=== PATIENT | female | born 1980 | race Caucasian/White ===

== ENCOUNTER → 2017-03-16 | Outpatient (CLI) | payer BC, OTHER ==
[~2017-03-16] MED LIST: ALBUTEROL; DOCU100T7; NITR-65 PO; ONDN4T; PREN1TAB39
--- NOTE | 2017-03-16 14:02 | Diagnostic Imaging Report ---
EXAMINATION: Transabdominal and transvaginal pelvic ultrasound. INDICATION: Abnormal uterine bleeding. FINDINGS: The uterus is 10.4 x 7 x 6.3 cm. The endometrial stripe is 1.6 cm in thickness. The myometrium demonstrates heterogenicity with multiple hyperechoic foci and prominent vascularity with color Doppler seen. Consider possibility of adenomyosis. In the posterior aspect of the fundus, there is a hypoechoic area measuring 2.8 x 1.9 x 3 cm which might represent a myometrial fibroid. The right ovary is 3.8 x 4.1 x 1.5 cm, and the left ovary is 2.7 x 2.2 x 3.2 cm. There are arterial and venous waveforms demonstrated. Bilateral follicles are also seen. Small amount of free fluid in the pelvis is noted. IMPRESSION: 1. Enlarged heterogeneous uterus may relate to adenomyosis. There is also suggestion of a myometrial fibroid in the posterior fundus. 2. The endometrial thickness is at the upper limits of normal with no definitive focal lesion seen. Dictated by: Dictated on workstation # [id number]
== END ==
LOC: RAD 10:34
PROVIDERS: ATTEND Nurse Practitioner Family
DX: N85.2 Hypertrophy of uterus (principal); N93.9 Abnormal uterine and vaginal bleeding, unspecified
CPT/HCPCS: 76830; 76856

== ENCOUNTER 2017-05-02 08:53 | Outpatient (CLI) | payer OTHER ==
[~2017-05-02] VITALS: Ht 182.9 cm; Wt 83.9 kg
[2017-05-02] MEDS ORDERED: LORA10TA76 PO (09:05)
[2017-05-02] MEDS ORDERED: RT-ALBUINH IH (09:05)
[2017-05-02] MEDS ORDERED: ALPR1TAB2 PO (09:05)
[2017-05-02 09:20] VITALS: BP 116/79
[2017-05-02 09:24] LABS: BASOPHILS # (AUTO) 0.1 10^3/uL (0.0-0.1); BASOPHILS % (AUTO) 1 % (0-10); EOSINOPHILS # (AUTO) 0.3 10^3/uL (0.0-0.3); EOSINOPHILS % (AUTO) 3 % (0-10); LYMPHOCYTES # (AUTO) 3.4 X 10^3 (1.0-4.0); LYMPHOCYTES % (AUTO) 33 % (12-44); MEAN CORPUSCULAR HEMOGLOBIN 31 PG (25-34); MEAN CORPUSCULAR HGB CONC 34 G/DL (32-36); MEAN CORPUSCULAR VOLUME 92 FL (80-99); MEAN PLATELET VOLUME 9.2 FL (7.4-10.4); MONOCYTES # (AUTO) 0.6 X 10^3 (0.0-1.0); MONOCYTES % (AUTO) 6 % (0-12); NEUTROPHILS % (AUTO) 58 % (42-75); PLATELET COUNT 575 10^3/uL (130-400); RED BLOOD COUNT 4.66 10^6/uL (4.35-5.85); RED CELL DISTRIBUTION WIDTH 14.4 % (10.0-14.5); WHITE BLOOD COUNT 10.4 10^3/uL (4.3-11.0)
== END 2017-05-02 09:25 | disposition home or self-care (01) ==
LOC: PREOP 08:53
PROVIDERS: ATTEND Obstetrics & Gynecology
DX: Z01.812 Encounter for preprocedural laboratory examination (principal); D25.9 Leiomyoma of uterus, unspecified; N94.6 Dysmenorrhea, unspecified; N93.9 Abnormal uterine and vaginal bleeding, unspecified
CPT/HCPCS: 36415; 85025; 86850; 86900; 86901; 87081

== ENCOUNTER 2017-05-05 07:16 | Day surgery (SDC) | payer OTHER ==
[~2017-05-05] VITALS: Ht 182.9 cm; Wt 83.9 kg
[~2017-05-05 07:16] MED LIST changes: +ALPR1TAB2 PO; +LORA10TA76 PO; +RT-ALBUINH IH
--- OUTSIDE RECORDS SUMMARY | 2017-05-05 07:19 | XMS REPORT ---
Author Author KING ANUGIANO [facility] eClinicalWorks Address Unknown Phone Unavailable Care Team Providers Care Delivery And Mail Sorter Name Role Phone KING ANGUIANO Unavailable Allergies No Known Allergies Problems Problem Type Condition Code Onset Dates Condition Status Problem Attention deficit disorder of childhood with hyperactivity 314.01 Active Problem Other general counseling and advice for contraceptive management V25.09 Active Problem Excessive or frequent menstruation 626.2 Active Problem Anxiety state, unspecified 300.00 Active Problem Other disorder of menstruation and other abnormal bleeding from female genital tract 626.8 Active Problem Major depressive disorder, recurrent episode, moderate 296.32 Active Problem Lumbago 724.2 Active Problem Screening examination for venereal disease V74.5 Active Problem Surveillance of previously prescribed intrauterine contraceptive device V25.42 Active Problem Unspecified breast screening V76.10 Active Problem Screening for malignant neoplasm of the cervix V76.2 Active Problem Other screening breast examination V76.19 Active Problem Encounter for removal of intrauterine contraceptive device V25.12 Active Problem Acute tonsillitis 463 Active Problem Encounter for insertion of intrauterine contraceptive device V25.11 Active Medications Medication Code System Code Instructions Start Date End Date Status Dosage Adderall [facility] [address]-87 5 MG Orally Once a day [id number] Aug 05, 2015 1 tab at 1600 Adderall XR [facility] [address]-17 20 MG Orally Once a day in the morning March 04, 2015 1 capsule Xanax [facility] [address]-03 1 MG Orally 4 times a day 1 tablet Ambien [facility] [address]-69 5 MG Orally Once a day at bedtime May 06, 2015 1 tablet Results No Known Results Summary Purpose eClinicalWorks Submission
--- OUTSIDE RECORDS SUMMARY | 2017-05-05 07:19 | XMS REPORT ---
Author Author DAPHNE EMERSON [facility] eClinicalWorks Address Unknown Phone Unavailable Care Team Providers Care Television Engineering Teacher Name Role Phone DAPHNE EMERSON CP Unavailable Allergies, Adverse Reactions, Alerts Substance Reaction Event Type Demerol rash Drug Allergy Problems Problem Type Condition Code Onset Dates [...] Active Problem Unspecified breast screening V76.10 Active Assessment alf use of drug Z79.899 Active Assessment Generalized anxiety disorder F41.1 Active Problem Screening for malignant neoplasm of the cervix V76.2 Active Problem Other screening breast examination V76.19 Active Assessment Attention-deficit hyperactivity disorder, unspecified type F90.9 Active Problem Encounter for removal of intrauterine contraceptive device V25.12 Active Problem Acute tonsillitis 463 Active Problem Encounter for insertion of intrauterine contraceptive device V25.11 Active Medications Medication Code System Code Instructions Start Date End Date Status Dosage Albuterol NDC 0 90 mcg/actuation January 11, 2013 2 puffs by Inhalation route 4 times per day PRN Loratadine [facility] [address]-31 10 mg Jul 23, 2014 1 Tablet by Oral route 1 time per day OTC for allergies Adderall XR [facility] [address]-18 20 mg Orally Once a day in the morning March 04, 2015 1 capsule Adderall [facility] [address]-93 5 MG Orally Once a day [id number] Aug 05, 2015 1 tab at 1600 Ambien [facility] [address]-69 5 MG Orally Once a day at bedtime May 06, 2015 1 tablet Alprazolam [facility] [address]-47 1 MG Orally 4 times a day 1 tablet Procedures Procedure Coding System Code Date Office Visit, Est Pt., Level 4 CPT-4 82951 December 30, 2015 Vital Signs Date/Time: December 30, 2015 Temperature 98.3 F Weight 150.5 lbs Height 71.75 in BMI 20.55 Index Blood Pressure Diastolic 80 mmHg Blood Pressure Systolic 130 mmHg Cardiac Monitoring Heart Rate 78 bpm Results Name Result Date Reference Range Unit Abnormality Flag URINE DRUG SCREEN (IN HOUSE) ----MDMA neg 20151230 ----TCA neg 20151230 ----BENZO positive 20151230 ----OPIATE neg 20151230 ----THC neg 20151230 ----MTD neg 20151230 ----AMPH positive 20151230 ----BAR neg 20151230 ----PCP neg 20151230 ----MAMP neg 20151230 ----OXY neg 20151230 ----Lot # [id number] ----Exp date 20151230 ----Control + 20151230 ----COCAINE neg 20151230 Summary Purpose eClinicalWorks Submission
--- OUTSIDE RECORDS SUMMARY | 2017-05-05 07:20 | XMS REPORT ---
Author Author GROVER COX Organization eClinicalWorks Address Unknown Phone Unavailable Care Team Providers Care Astro Technician Name Role Phone GROVER COX CP Unavailable Allergies, Adverse Reactions, Alerts Substance [...] Problem Unspecified breast screening V76.10 Active Assessment Attention-deficit hyperactivity disorder, unspecified type F90.9 Active Problem Screening for malignant neoplasm of the cervix V76.2 Active Problem Other screening breast examination V76.19 Active Assessment Generalized anxiety disorder F41.1 Active Problem Encounter for removal of intrauterine contraceptive device V25.12 Active Problem Acute tonsillitis 463 Active Problem Encounter for insertion of intrauterine contraceptive device V25.11 Active Medications Medication Code System Code Instructions Start Date End Date Status Dosage Adderall XR [facility] [address]-08 20 mg Orally Once a day in the morning March 04, 2015 1 capsule Ambien [facility] [address]-34 5 mg Orally Once a day at bedtime May 06, 2015 1 tablet Alprazolam [facility] [address]-13 1 MG Orally 4 times a day 1 tablet Loratadine [facility] [address]-03 10 mg Jul 23, 2014 1 Tablet by Oral route 1 time per day OTC for allergies Adderall [facility] [address]-75 5 mg Orally Once a day [id number] Aug 05, 2015 1 tab at 1600 Albuterol [facility] 0 90 mcg/actuation January 11, 2013 2 puffs by Inhalation route 4 times per day PRN Procedures Procedure Coding System Code Date Office Visit, Est Pt., Level 3 CPT-4 15002 Apr 06, 2016 Vital Signs Date/Time: Apr 06, 2016 Cardiac Monitoring Heart Rate 100 bpm Weight 152.0 lbs Height 71.75 in BMI 20.76 Index Blood Pressure Diastolic 80 mmHg Blood Pressure Systolic 96 mmHg Results No Known Results Summary Purpose eClinicalWorks Submission
--- OUTSIDE RECORDS SUMMARY | 2017-05-05 07:20 | XMS REPORT ---
Author Author Phuong GROVER Organization [facility] Address [address] [place] [address] Care Team Providers Care Player Services Representative Name Role Phone rileyDallasSOPHIARAMANY Unavailable PROBLEMS Type Condition ICD9-CM Code [id number] Code Onset Dates Condition Status SNOMED Code Problem Generalized anxiety disorder F41.1 Active 35259541 Problem Recurrent major depressive disorder, in partial remission F33.41 Active 70377448 Problem Mild intermittent asthma without complication J45.20 Active 553182497 Problem Abnormal uterine bleeding N93.9 Active 00408579121217 Problem Menorrhagia with irregular cycle N92.1 Active 688284815 Problem Panic disorder F41.0 Active 857576676 Problem Encounter for well woman exam Z01.419 Active 195323484 Problem Dysmenorrhea N94.6 Active 803599304 ALLERGIES Substance Reaction Event Type Date Status Demerol rash Drug Allergy Aug, Active SOCIAL HISTORY No smoking Hx information available PLAN OF CARE Activity Details Follow Up 3 Months Reason: VITAL SIGNS Height 71.75 in 2016-08-19 Weight 170.7 lbs 2016-08-19 Heart Rate 120 bpm 2016-08-19 Respiratory Rate 20 2016-08-19 BMI 23.31 kg/m2 2016-08-19 Blood pressure systolic 120 mmHg 2016-08-19 Blood pressure diastolic 83 mmHg 2016-08-19 MEDICATIONS Medication Instructions Dosage Frequency Start Date End Date Duration Status Alprazolam 1 MG Orally 4 times a day 1 tablet 6h Active RESULTS No Results PROCEDURES Procedure Date Ordered Related Diagnosis Body Site MH Office Visit, Est Pt., Level 3 Aug 19, 2016 IMMUNIZATIONS No Known Immunizations
--- OUTSIDE RECORDS SUMMARY | 2017-05-05 07:20 | XMS REPORT ---
Author Author GROVER COX [facility] Address [address] [place] [address] Care Team Providers Care Brick Off Bearer Name Role Phone GROVER COX Unavailable PROBLEMS Unknown Problems ALLERGIES Unknown Allergies SOCIAL HISTORY No smoking Hx information available PLAN OF CARE VITAL SIGNS MEDICATIONS Medication Instructions Dosage Frequency Start Date End Date Duration Status Adderall XR 20 mg Orally Once a day in the morning 1 capsule Feb, Active Adderall 5 mg Orally Once a day [id number] 1 tab at 1600 Aug, Active Alprazolam 1 MG Orally 4 times a day 1 tablet 6h Active RESULTS No Results PROCEDURES No Known procedures IMMUNIZATIONS No Known Immunizations
--- OUTSIDE RECORDS SUMMARY | 2017-05-05 07:20 | XMS REPORT ---
Author Author GROVER COX Organization eClinicalWorks Address Unknown Phone Unavailable Care Team Providers Care Milk Sampler Name Role Phone GROVER COX CP Unavailable Allergies No Known Allergies Problems Problem [...] Date End Date Status Dosage Adderall XR [facility] [address]-79 20 mg Orally Once a day in the morning March 04, 2015 1 capsule Adderall [facility] [address]-53 5 mg Orally Once a day [id number] Aug 05, 2015 1 tab at 1600 Results No Known Results Summary Purpose eClinicalWorks Submission
--- OUTSIDE RECORDS SUMMARY | 2017-05-05 07:20 | XMS REPORT ---
Author Author KING ANGUIANO [facility] eClinicalWorks Address Unknown Phone Unavailable Care Team Providers Care Oracle Fusion Middleware Developer Name Role Phone KING ANGUIANO Unavailable Allergies [...] Problem Unspecified breast screening V76.10 Active Assessment Anxiety disorder, unspecified F41.9 Active Problem Screening for malignant neoplasm of the cervix V76.2 Active Problem Other screening breast examination V76.19 Active Assessment Attention-deficit hyperactivity disorder, predominantly hyperactive type F90.1 Active Problem Encounter for removal of intrauterine contraceptive device V25.12 Active Problem Acute tonsillitis 463 Active Problem Encounter for insertion of intrauterine contraceptive device V25.11 Active Medications Medication Code System Code Instructions Start Date End Date Status Dosage Adderall [facility] [address]-05 5 MG Orally Once a day [id number] Aug 05, 2015 1 tab at 1600 Ambien [facility] [address]-84 5 MG Orally Once a day at bedtime May 06, 2015 1 tablet Xanax [facility] [address]-00 1 MG Orally 4 times a day 1 tablet Adderall XR [facility] [address]-40 20 MG Orally Once a day in the morning Dr. Good to sign for Giuliana March 04, 2015 1 capsule Loratadine [facility] [address]-45 10 mg Jul 23, 2014 1 Tablet by Oral route 1 time per day OTC for allergies Albuterol [facility] 0 90 mcg/actuation January 11, 2013 2 puffs by Inhalation route 4 times per day PRN Procedures Procedure Coding System Code Date Office Visit, Est Pt., Level 4 CPT-4 09630 Aug 05, 2015 Vital Signs Date/Time: Aug 05, 2015 Cardiac Monitoring Heart Rate 80 bpm Weight 150 lbs Height 71.75 in BMI 20.48 Index Blood Pressure Diastolic 74 mmHg Blood Pressure Systolic 122 mmHg Results No Known Results Summary Purpose eClinicalWorks Submission
--- OUTSIDE RECORDS SUMMARY | 2017-05-05 07:20 | XMS REPORT ---
Author Author MIC STEPHENS [facility] eClinicalWorks Address Unknown Phone Unavailable Care Team Providers Care Makeup Artist Name Role Phone MIC STEPHENS Unavailable Allergies No Known Allergies Problems Problem Type Condition ICD-9 Code Onset Dates Condition Status Problem Attention [...] Date End Date Status Dosage Adderall XR [facility] [address]-77 20 MG Orally Once a day in the morning March 04, 2015 1 capsule Results No Known Results Summary Purpose eClinicalWorks Submission
--- OUTSIDE RECORDS SUMMARY | 2017-05-05 07:20 | XMS REPORT ---
Author Author GROVER COX Organization eClinicalWorks Address Unknown Phone Unavailable Care Team Providers Care Field Services Director Name Role Phone GROVER COX CP Unavailable [...] Instructions Start Date End Date Status Dosage Alprazolam [facility] [address]-25 1 MG Orally 4 times a day 1 tablet Results No Known Results Summary Purpose eClinicalWorks Submission
--- OUTSIDE RECORDS SUMMARY | 2017-05-05 07:20 | XMS REPORT ---
Author Author GROVER COX Organization eClinicalWorks Address Unknown Phone Unavailable Care Team Providers Care Veterinary Inspector Name Role Phone GROVER COX CP Unavailable [...] Date End Date Status Dosage Adderall XR [facility] [address]-01 20 mg Orally Once a day in the morning March 04, 2015 1 capsule Adderall [facility] [address]-66 5 mg Orally Once a day [id number] Aug 05, 2015 1 tab at 1600 Alprazolam [facility] [address]-41 1 MG Orally 4 times a day 1 tablet Results No Known Results Summary Purpose eClinicalWorks Submission
--- OUTSIDE RECORDS SUMMARY | 2017-05-05 07:20 | XMS REPORT ---
Author Author ALEJANDRO CORLEY [facility] eClinicalWorks Address Unknown Phone Unavailable Care Team Providers Care Software Tester Name Role Phone ALEJANDRO CORLEY CP Unavailable Allergies No Known Allergies Problems [...] Date End Date Status Dosage Adderall XR [facility] [address]-22 20 MG Orally Once a day in the morning March 04, 2015 1 capsule Adderall [facility] [address]-28 5 MG Orally Once a day [id number] Aug 05, 2015 1 tab at 1600 Results No Known Results Summary Purpose eClinicalWorks Submission
--- OUTSIDE RECORDS SUMMARY | 2017-05-05 07:20 | XMS REPORT ---
Author Author KING ANGUIANO [facility] eClinicalWorks Address Unknown Phone Unavailable Care Team Providers Care Universal Grinder Operator Name Role Phone KING ANGUIANO Unavailable Allergies [...] Instructions Start Date End Date Status Dosage Ambien [facility] [address]-67 5 MG Orally Once a day at bedtime May 06, 2015 1 tablet Adderall XR [facility] [address]-86 20 MG Orally Once a day in the morning March 04, 2015 1 capsule Xanax [facility] [address]-15 1 MG Orally 4 times a day 1 tablet Adderall [facility] [address]-96 5 MG Orally Once a day [id number] Aug 05, 2015 1 tab at 1600 Results No Known Results Summary Purpose eClinicalWorks Submission
--- OUTSIDE RECORDS SUMMARY | 2017-05-05 07:20 | XMS REPORT ---
Author Author JEFFERSON PAUL Organization [facility] Address [address] [place] [address] Care Team Providers Care Button Clamper Name Role Phone PAUL JEFFERSON Unavailable PROBLEMS Type Condition ICD9-CM Code [id number] Code Onset Dates Condition Status SNOMED Code Assessment Neck muscle strain, initial encounter S16.1XXA Aug, Active 256106204 ALLERGIES Substance Reaction Event Type Date Status Demerol rash Drug Allergy Aug, Active SOCIAL HISTORY No smoking Hx information available PLAN OF CARE VITAL SIGNS Height 71.75 in 2016-08-07 Weight 175.6 lbs 2016-08-07 Heart Rate 96 bpm 2016-08-07 Respiratory Rate 20 2016-08-07 BMI 23.98 kg/m2 2016-08-07 Blood pressure systolic 116 mmHg 2016-08-07 Blood pressure diastolic 80 mmHg 2016-08-07 MEDICATIONS Medication Instructions Dosage Frequency Start Date End Date Duration Status Loratadine 10 mg 1 Tablet by Oral route 1 time per day OTC for allergies Jul, Active Ambien 5 mg Orally Once a day at bedtime 1 tablet May, Active Alprazolam 1 MG Orally 4 times a day 1 tablet 6h Active Adderall 5 mg Orally Once a day [id number] 1 tab at 1600 Aug, Active Adderall XR 20 mg Orally Once a day in the morning 1 capsule Feb, Active Cyclobenzaprine HCl 10 mg Orally Three times a day 1 tablet 8h Aug, Aug, 10 days Active Albuterol 90 mcg/actuation 2 puffs by Inhalation route 4 times per day PRN January, Active RESULTS No Results PROCEDURES Procedure Date Ordered Related Diagnosis Body Site Office Visit, Est Pt., Level 3 Aug 07, 2016 IMMUNIZATIONS No Known Immunizations
--- OUTSIDE RECORDS SUMMARY | 2017-05-05 07:20 | XMS REPORT ---
Author Author GROVER COX Organization eClinicalWorks Address Unknown Phone Unavailable Care Team Providers Care French Comber Name Role Phone GROVER COX CP Unavailable [...] Date End Date Status Dosage Adderall XR [facility] [address]-25 20 mg Orally Once a day in the morning March 04, 2015 1 capsule Adderall [facility] [address]-70 5 mg Orally Once a day [id number] Aug 05, 2015 1 tab at 1600 Results No Known Results Summary Purpose eClinicalWorks Submission
--- NOTE | 2017-05-05 07:21 | Progress Note-Pre Operative ---
Pre-Operative Progress Note H&P Reviewed The H&P was reviewed, patient examined and no changes noted. Date Seen by Provider: May 05, 2017 Time Seen by Provider: 08:00 Date H&P Reviewed: May 05, 2017 Time H&P Reviewed: 08:00 Pre-Operative Diagnosis: AUB, Enlarged uterus, Fibroid uterus, dysmenorrhea CHRIS RAIN DO May 05, 2017 7:21 am
--- OUTSIDE RECORDS SUMMARY | 2017-05-05 07:21 | XMS REPORT ---
Author Author MIC STEPHENS [facility] eClinicalWorks Address Unknown Phone Unavailable Care Team Providers Care Sharepoint Consultant Name Role Phone MIC STEPHENS Unavailable Allergies [...] Date End Date Status Dosage Adderall XR [facility] [address]-76 20 MG Orally Once a day in the morning Dr. Good to sign for Giuliana March 04, 2015 1 capsule Results No Known Results Summary Purpose eClinicalWorks Submission
--- OUTSIDE RECORDS SUMMARY | 2017-05-05 07:21 | XMS REPORT ---
Author Author MIC STEPHENS [facility] eClinicalWorks Address Unknown Phone Unavailable Care Team Providers Care Virology Teacher Name Role Phone MIC STEPHENS CP Unavailable Allergies, Adverse Reactions, Alerts Substance Reaction Event Type Demerol rash Drug Allergy Problems Problem Type Condition ICD-9 Code Onset [...] Unspecified breast screening V76.10 Active Assessment Anxiety state, unspecified 300.00 Active Problem Screening for malignant neoplasm of the cervix V76.2 Active Problem Other screening breast examination V76.19 Active Assessment Attention deficit disorder of childhood with hyperactivity 314.01 Active Problem Encounter for removal of intrauterine contraceptive device V25.12 Active Problem Acute tonsillitis 463 Active Problem Encounter for insertion of intrauterine contraceptive device V25.11 Active Medications Medication Code System Code Instructions Start Date End Date Status Dosage Adderall XR [facility] [address]-62 20 MG Orally Once a day in the morning March 04, 2015 1 capsule Albuterol [facility] 0 90 mcg/actuation January 11, 2013 2 puffs by Inhalation route 4 times per day PRN Ambien [facility] [address]-13 5 MG Orally Once a day at bedtime May 06, 2015 1 tablet Loratadine [facility] [address]-71 10 mg Jul 23, 2014 1 Tablet by Oral route 1 time per day OTC for allergies Xanax [facility] [address]-42 1 MG Orally 4 times a day 1 tablet Procedures Procedure Coding System Code Date Office Visit, Est Pt., Level 3 CPT-4 91089 May 06, 2015 Vital Signs Date/Time: May 06, 2015 Cardiac Monitoring Heart Rate 84 bpm Weight 146.8 lbs Height 71.75 in BMI 20.05 Index Blood Pressure Diastolic 60 mmHg Blood Pressure Systolic 98 mmHg Results No Known Results Summary Purpose eClinicalWorks Submission
--- OUTSIDE RECORDS SUMMARY | 2017-05-05 07:21 | XMS REPORT ---
Author Author MIC STEPHENS [facility] eClinicalWorks Address Unknown Phone Unavailable Care Team Providers Care Regional Climate Change Analyst Name Role Phone MIC STEPHENS Unavailable Allergies [...] Date End Date Status Dosage Adderall XR [facility] [address]-16 20 MG Orally Once a day in the morning Dr. Good to sign for Giuliana March 04, 2015 1 capsule Results No Known Results Summary Purpose eClinicalWorks Submission
[2017-05-05] MEDS ORDERED: metroNIDAZOLE 500MG/100ML IVPB 100 ML ONE (07:24)
[2017-05-05] MEDS ORDERED: NS (IVPB) 50 ML ONE (07:24)
[2017-05-05] MEDS ORDERED: ceFAZolin 1,000 MG (ANCEF) VIAL ONE (07:24)
[2017-05-05 07:30] VITALS: BP 96/68
[2017-05-05] MEDS ORDERED: BUPIVACAINE 0.25% 30 ML (SENSORCAINE) VIAL ONE (07:37)
[2017-05-05] MEDS ORDERED: metroNIDAZOLE 500 MG/100 ML IVPB (PRE-MIX) IV ONE (07:45)
[2017-05-05] MEDS ORDERED: ceFAZolin 1 GM/NS 50 ML IVPB IV ONE ×2 (07:45)
[2017-05-05] MEDS ORDERED: CATHETER FLUSH 10 ML SYR IV PRN (07:45)
[2017-05-05] MEDS: LACTATED RINGERS 1,000 ML IV PRN ×2 (08:00→09:40)
[2017-05-05] MEDS ORDERED: MIDAZOLAM 2 MG/2 ML (VERSED) VIAL ONE (08:57)
[2017-05-05] MEDS ORDERED: proPOfol 200 MG/20 ML (DIPRIVAN) VIAL IV ONE (08:57)
[2017-05-05] MEDS ORDERED: fentaNYL INJECTION 250 MCG/5 ML AMP ONE (08:57)
[2017-05-05] MEDS ORDERED: ROCURONIUM 50 MG/5 ML (ZEMURON) VIAL IV ONE (08:57)
[2017-05-05] MEDS ORDERED: CHLORASEPTIC LOZENGE MM PRN (09:15)
[2017-05-05] MEDS ORDERED: SIMETHICONE 80 MG (MYLICON) CHEW PO PRN (09:15)
[2017-05-05] MEDS ORDERED: DOCUSATE SODIUM 100 MG (COLACE) CAP PO PRN (09:15)
[2017-05-05] MEDS ORDERED: ZOLPIDEM 5 MG (AMBIEN) TAB PO PRN (09:15)
[2017-05-05] MEDS ORDERED: ONDANSETRON 4 MG/2 ML (SDV) Z0FRAN IV PRN (09:15)
[2017-05-05] MEDS ORDERED: ANTACID SUSP 30 ML UDC (MYLANTA) PO PRN (09:15)
[2017-05-05] MEDS ORDERED: DEXAMETHASONE 10 MG/ML (DECADRON) 1 ML VIAL ONE (10:23)
[2017-05-05] MEDS ORDERED: NEOSTIGMINE (BLOXIVERZ ) 1 MG/1ML 10 ML VIAL ONE (10:23)
[2017-05-05] MEDS ORDERED: SEVOFLURANE (ULTANE) 15 ML INHAL SOLN ONE (10:23)
[2017-05-05] MEDS ORDERED: GLYCOPYRROLATE 0.2 MG/ML (ROBINUL) 2 ML VIAL ONE (10:23)
[2017-05-05] MEDS ORDERED: morphine INJ 10 MG/ML 1ML (SYR OR VIAL) ONE (10:38)
[2017-05-05] MEDS ORDERED: fentaNYL INJECTION 100 MCG/2 ML AMP ONE (10:38)
[2017-05-05] MEDS: fentaNYL INJECTION 100 MCG/2 ML AMP IVP PRN ×2 (10:45→10:53)
[2017-05-05] MEDS: morphine INJ 10 MG/ML 1ML (SYR OR VIAL) IVP PRN ×2 (10:49→11:01)
[2017-05-05] MEDS ORDERED: HYDROmorphone (DILAUDID) 2 MG/ML VIAL IVP PRN (11:00)
[2017-05-05] MEDS ORDERED: KETOROLAC 30 MG/ML VIAL IVP ONE (11:00)
[2017-05-05] MEDS ORDERED: ONDANSETRON 4 MG/2 ML (SDV) Z0FRAN IVP PRN (11:00)
--- NOTE | 2017-05-05 11:01 | Discharge Inst-Women's Service ---
Discharge Inst-Women's Serv Depart Medication/Instructions New, Converted or Re-Newed RX: RX on Chart Consults/Follow Up Additional Follow Up: Yes Orders/Referrals Dr. Rain in 7-10 days and in 8 weeks Activity Activity: Activity as Tolerated Driving Instructions: No Driving for 1 Week NO SMOKING: NO SMOKING Nothing Inside Vagina: No Douching, No [place], No Tampons Diet Discharge Diet: No Restrictions Symptoms to Report to : Bleeding Excessive, Pain Increased, Fever Over 101 Degrees F, Vaginal Bleeding Increase, Questions/Concerns For Any Problems or Questions: Contact Your Physician Skin/Wound Care Infection Signs and Symptoms: Increased Redness, Foul Odor of Wound, Increased Drainage, Skin Itchy or Has a Rash, Increased Swelling, Temperature Above 101 F Operative Area Clean and Dry: Keep Incision Clean/Dry Stitches/Lizzy/Dermabond: Dermabond, Care of Stitches Bathing Instructions: Shower (x 2 weeks) CHRIS RAIN DO May 05, 2017 11:01 am
[2017-05-05] MEDS ORDERED: HYDR-3816 PO (11:03)
[2017-05-05] MEDS ORDERED: IBUP-1773 PO (11:03)
[2017-05-05] MEDS ORDERED: DOCU100C37 PO (11:03)
[2017-05-05] MEDS ORDERED: SIME80TA16 PO (11:03)
--- NOTE | 2017-05-05 11:06 | Progress Note-Post Operative ---
Post-Operative Progess Note Surgeon (s)/Laborer/Key Man (s) Surgeon CHRIS RAIN DO Laborer/Key Man: Natasha France Pre-Operative Diagnosis AUB, Enlarged uterus, Fibroid uterus, dysmenorrhea Post-Operative Diagnosis same plus uterus > 250 gms Procedure & Operative Findings Date of Procedure 05/05/17 Procedure Performed/Findings RATLH with bilateral salpingectomy Anesthesia Type GETA Estimated Blood Loss Estimated blood loss (mL): min Specimens/Packing Specimens Removed uterus and tubes CHRIS RAIN DO May 05, 2017 11:06 am
[2017-05-05 12:00] VITALS: BP 96/72
[2017-05-05 13:00] VITALS: BP 98/64
--- NOTE | 2017-05-05 13:21 | OPERATIVE REPORT ---
DATE OF SERVICE: 05/05/2017 PREOPERATIVE DIAGNOSES: 1. A 36-year-old female with abnormal uterine bleeding. 2. Enlarged uterus. 3. Fibroid uterus. 4. Dysmenorrhea. POSTOPERATIVE DIAGNOSES: 1. A 36-year-old female with abnormal uterine bleeding. 2. Enlarged uterus. 3. Fibroid uterus. 4. Dysmenorrhea. 5. Uterus greater than 250 grams. PROCEDURES: Robotic assisted total laparoscopic hysterectomy and bilateral salpingectomy. SURGEON: CHRIS RAIN DO. [employer]ENT [employer]: ALEXI CARLTON ANESTHESIA: General endotracheal. ESTIMATED BLOOD LOSS: Minimal. URINE OUTPUT: 50 mL clear at the time of procedure. FLUID: 1300 mL lactated Ringer's solution. FINDINGS: Enlarged, bulky, hyperemic appearing uterus with grossly normal bilateral fallopian tubes and ovaries. Normal external female genitalia. Normal vaginal mucosa. INDICATIONS FOR PROCEDURE: This 36-year-old female was a consultation to me for ongoing issues with heavy vaginal bleeding. The patient works at a car [employer] and on several occasions has had bleeding to the extent where it has bypassed her tampons and pads and have actually spilled blood out into her pants and into the seats of vehicle she had been driving. She had been on multiple treatment options in the past, all of which have failed to regulate her. She also smokes and now contraindication due to her being greater than the age of 34 and smoking was found for trial of hormonal treatment of this. We also discussed endometrial ablation, however, I discussed the limited success rate of this based on the uterine size. We also discussed finally a more definitive option in the form of hysterectomy, risks of procedure discussed with the patient in detail including the risk of bleeding, infection, damage to any surrounding structures including but not limited the ureter, bowel, bladder, kidneys. After all of her questions were answered pertaining to risk of these injuries, reoperation from these injuries, risks of the procedure in detail, as well as postoperative and preoperative expectations, consent was obtained in the preoperative area and the patient was taken to the operating room. OPERATIVE REPORT IN DETAIL: Once in the operating room, general anesthesia was found to be excellent. She was placed in the dorsal lithotomy position, prepped and draped in normal sterile fashion. Wiseman catheter was placed using sterile technique. A weighted speculum was inserted in the patient's vaginal. A right angle retractor was used to visualize the cervix, it was grasped in the 12 o'clock position using a long Allis clamp. An 0 Vicryl suture was then placed in the anterior lip of the cervix and the clamp is then removed. I used the suture now as my retraction point and gently sounded the uterine cavity, it was found to be 9 cm. I then selected an 8 cm Sarah uterine manipulator tip and a 3.5 cm colpotomy ring and placed this within the endometrial cavity deploying the balloon and advancing the colpotomy ring around the vaginal fornix. Once this was in place, excellent uterine manipulation was noted on bimanual examination. I then removed all the instruments from the patient's vagina and turned my attention to the abdomen after change of gloves was performed. Infraumbilically I infiltrated this area using 0.25% Marcaine and made an 8 mm incision and directed Veress needle through this incision until intraperitoneal placement was confirmed using the saline drop test. I then proceeded with insufflation using CO2 gas and opening pressure of 3 mmHg is noted. I proceeded to a maximum pressure of 15 mmHg at which point I removed the Veress needle and introduced an 8 mm blunt da Glendy camera trocar. Once this was in place I placed the patient in deep Trendelenburg and I am able to visualize deep intraperitoneal anatomy. There is no evidence of damage upon my entry site. I then placed 2 lateral trocars, these were both 8 mm trocars. The skin was infiltrated with 0.25% Marcaine, 8 mm incisions are made and the trocars are advanced under direct visualization with the laparoscope. Once intraperitoneal placement is confirmed on bilateral side, I then bring in the da Glendy robot and dock in the appropriate fashion. I placed the da Glendy vessel sealer in the left hand and monopolar scissors in the right hand. I then take my place at the operative console of the da Glendy robot. I then performed the following dissections bilaterally: I grasped the uteroovarian ligament, bipolar cauterized this, and transected using vessel sealer. I then created a window in the mesosalpinx and took this laterally transecting the mesosalpinx from the fallopian tube and allowing it to be removed with the uterus. I do this using the vessel sealer and bipolar cauterizing and transecting as I go. I then grasp the round ligament, bipolar cauterize this, and transect it as well. I then am able to grab the entire broad ligament. I bipolar cauterized this and transected this down to the level of the lower uterine segment at which point I separate the anterior and posterior leaflets of the broad ligament. The anterior leaflet is taken around to the anterior vaginal fornix. The posterior leaflet is taken around to the posterior vaginal fornix. This allows me to isolate and skeletonize the uterine vessels bilaterally. Once they are skeletonized, I bipolar cauterized and transected them using the vessel sealer. I then performed a colpotomy using monopolar shear. I take this circumferentially around the colpotomy ring, amputating the cervix away from the vaginal fornix. The entire specimen, uterus, cervix, and bilateral fallopian tubes were then removed through the vagina. I then proceeded with closing the vaginal cuff using 2-0 Vicryl suture in a figure of eight fashion, colposuspending them to the uterosacral ligaments. The lateral vaginal apices are closed in this fashion. I then closed the remainder of the vaginal cuff using 2-0 V-Loc in a running stitch. There is no active bleeding from any of my dissection planes after this is completed. I then undocked the da Glendy robot and proceeded with the remainder of the case all laparoscopically after all robotic instruments and needles are removed. I then copiously irrigated the pelvis using normal saline. There is no active bleeding noted from any of my dissection planes. I then placed FloSeal hemostatic agent over all my planes of dissection and had the patient taken out of steep Trendelenburg. The lateral trocars are removed under direct visualization of the laparoscope. The infraumbilical trocar is then used to release all the insufflation and to introduce 10 mL of 0.25% Marcaine into the peritoneal cavity for postoperative pain management. Once this was done, I removed the infraumbilical trocar and then incision sites were then closed using 4-0 Monocryl in interrupted subcuticular stitches. Dermabond was applied to the incisions and bandage placed over these. Wiseman catheter was left in place. The patient tolerated the procedure well and was taken to the recovery area in stable condition. Lap and sponge counts were correct at the end of the procedure. Instrument count was correct as well. Two grams of Ancef, 500 mg of Flagyl were given preoperatively for infection prophylaxis. Job ID: [id number] DocumentID: [id number] Dictated Date: 05/05/2017 11:13:06 Maintenance Porter Date: 05/05/2017 13:21:15 Dictated By: DO JABARI JOSEPH
[2017-05-05 13:30] VITALS: BP 95/64
[2017-05-05] MEDS ORDERED: NS IV 500 ML 500 ML ONE (14:30)
[2017-05-05] MEDS ORDERED: NS IV 500 ML 500 ML IV SCH (14:45)
[2017-05-05] MEDS: LACTATED RINGERS 1,000 ML IV SCH (14:52)
[2017-05-05 15:00] VITALS: BP 106/67
[2017-05-05] MEDS: HYDROcodone/APAP 7.5 MG/325 MG (LORTAB, LORCET PLUS) TABLET PO PRN ×2 (15:02→16:58)
[2017-05-05] MEDS: KETOROLAC 30 MG/ML VIAL IV PRN ×2 (16:09→22:38)
[2017-05-05] MEDS ORDERED: PATIENT MAY USE OWN MEDS, ALL MC SCH (19:00)
[2017-05-05 20:00] VITALS: BP 97/62
[2017-05-05] MEDS: ALPRAZolam 1 MG (XANAX) TAB PO SCH (20:37)
[2017-05-06] VITALS: BP 100/62
[2017-05-06] MEDS: HYDROcodone/APAP 7.5 MG/325 MG (LORTAB, LORCET PLUS) TABLET PO PRN ×2 (00:07→06:02)
[2017-05-06] MEDS: LACTATED RINGERS 1,000 ML IV SCH ×2 (01:29→09:36)
[2017-05-06 04:00] VITALS: BP 101/65
[2017-05-06] MEDS: IBUPROFEN 600 MG (MOTRIN) TAB PO PRN ×2 (04:36→09:22)
[2017-05-06 08:00] VITALS: BP 102/66
[2017-05-06] MEDS: ALPRAZolam 1 MG (XANAX) TAB PO SCH (09:19)
[2017-05-06 10:15] VITALS: BP 102/66
== END 2017-05-06 10:15 | disposition home or self-care (01) ==
LOC: SDC 07:16 → WS 11:52 → SDC 05-06 10:15
PROVIDERS: ATTEND Obstetrics & Gynecology
DX: N94.6 Dysmenorrhea, unspecified (principal); D25.9 Leiomyoma of uterus, unspecified; N85.2 Hypertrophy of uterus; N72 Inflammatory disease of cervix uteri; N83.8 Other noninflammatory disorders of ovary, fallopian tube and broad ligament; F17.210 Nicotine dependence, cigarettes, uncomplicated; J45.909 Unspecified asthma, uncomplicated; K21.9 Gastro-esophageal reflux disease without esophagitis; Z79.899 Other long term (current) drug therapy
CPT/HCPCS: 84703

== ENCOUNTER 2020-11-03 08:21 | Outpatient (RCR) | payer BC, OTHER ==
[~2020-11-03 08:21] MED LIST changes: +DOCU100C37 PO; +HYDR-34 PO; +IBUP-1773 PO; +SIME80TA16 PO
[2020-12-05] MEDS ORDERED: NICO-587 TD (09:50)
[2020-12-05] MEDS ORDERED: CITA10TA7 PO (09:50)
[2020-12-05] MEDS ORDERED: DEXT10CA18 PO (09:50)
[2020-12-05] MEDS ORDERED: PROP60TA17 PO (09:50)
== END 2021-02-01 | disposition home or self-care (01) ==
LOC: CARD 08:21
PROVIDERS: ATTEND Nurse Practitioner Family
DX: R00.2 Palpitations (principal)
CPT/HCPCS: 93005; 93225; 93226

== ENCOUNTER 2020-12-05 08:10 | Day surgery (SDC) | payer BC ==
[2020-12-05] VITALS (11 sets, daily range): BP systolic 102–124; BP diastolic 47–84
[~2020-12-05] VITALS: Ht 182.9 cm; Wt 87.0 kg
[2020-12-05 08:47] LABS: ABSOLUTE RETIC # 84 10e9/uL (24-90); BASOPHILS # (AUTO) 0.1 10^3/uL (0.0-0.1); BASOPHILS % (AUTO) 1 % (0-10); EOSINOPHILS # (AUTO) 0.2 10^3/uL (0.0-0.3); EOSINOPHILS % (AUTO) 2 % (0-10); HEMATOCRIT 46 % (35-52); HEMOGLOBIN 15.1 g/dL (11.5-16.0); LYMPHOCYTES # (AUTO) 3.6 10^3/uL (1.0-4.0); LYMPHOCYTES % (AUTO) 36 % (12-44); MEAN CORPUSCULAR HEMOGLOBIN 31 pg (25-34); MEAN CORPUSCULAR HGB CONC 33 g/dL (32-36); MEAN CORPUSCULAR VOLUME 93 fL (80-99); MEAN PLATELET VOLUME 9.2 fL (9.0-12.2); MONOCYTES # (AUTO) 0.5 10^3/uL (0.0-1.0); MONOCYTES % (AUTO) 6 % (0-12); NEUTROPHILS # (AUTO) 5.5 10^3/uL (1.8-7.8); NEUTROPHILS % (AUTO) 56 % (42-75); PLATELET COUNT 539 10^3/uL (130-400); RETICULOCYTE % 1.71 % (0.50-2.40); WHITE BLOOD COUNT 9.8 10^3/uL (4.3-11.0)
[2020-12-05 08:59] LABS: PROTHROMBIN TIME PATIENT 13.4 SEC (12.2-14.7)
[2020-12-05 09:03] LABS: BAND NEUTROPHILS 1 %; EOSINOPHILS % (MANUAL) 1 %; LYMPHOCYTES % (MANUAL) 37 %; MONOCYTES % (MANUAL) 5 %; NEUTROPHILS % (MANUAL) 52 %; RBC MORPH NORMAL; REACTIVE LYMPHOCYTES 4 %
[2020-12-05] MEDS ORDERED: NS IV 1000 ML 1,000 ML IV STA (09:19)
[2020-12-05] MEDS ORDERED: LIDOCAINE 1% INJ 20 ML 20 ML VIAL INJ ONE (09:30)
[2020-12-05] MEDS ORDERED: fentaNYL INJ 100 MCG/2 ML AMP IVP ONE (09:30)
[2020-12-05] MEDS ORDERED: MIDAZOLAM 2 MG/2 ML (VERSED) VIAL IVP ONE (09:30)
[2020-12-05] MEDS ORDERED: DEXT10CA18 PO (09:50)
[2020-12-05] MEDS ORDERED: CITA10TA7 PO (09:50)
[2020-12-05] MEDS ORDERED: NICO-587 TD (09:50)
[2020-12-05] MEDS ORDERED: PROP60TA17 PO (09:50)
[2020-12-05] MEDS ORDERED: HYDROcodone/APAP 5 MG/325 MG (LORTAB) TAB PO PRN (10:45)
--- NOTE | 2020-12-05 11:20 | Diagnostic Imaging Report ---
INDICATION: Increasing hemoglobin. Patient presents for CT-guided bone marrow aspiration and biopsy. The patient was brought to the CT suite and placed on the table in the prone position. Axial imaging through the pelvis was performed to evaluate appropriate entry site. The procedure was performed utilizing conscious sedation with radiology nursing and constant patient monitoring. The patient was given a total of 75 mcg of fentanyl intravenously and 1 mg of Versed intravenously. Total procedure time was 6 minutes. The low back was prepped and draped in the usual sterile fashion. A small amount of 1% lidocaine was utilized for local anesthesia. A bone marrow needle was advanced and placed with its tip along the posterior cortex of the right iliac bone. The needle was advanced through the cortex utilizing the bone marrow drill. Two bone marrow aspirates were then obtained. The drill was then utilized to obtain a core biopsy of the bone marrow. Needle was removed. Hemostasis was obtained using manual compression. The patient tolerated the procedure well and left the department in stable condition. IMPRESSION: Successful CT-guided bone marrow aspiration and biopsy, as described. Dictated by: Dictated on workstation # [id number]
== END 2020-12-05 12:35 | disposition home or self-care (01) ==
LOC: RAD 08:10 → SDC 10:36 → RAD 12:35
PROVIDERS: ATTEND Internal Medicine Hematology & Oncology
DX: D47.3 Essential (hemorrhagic) thrombocythemia (principal); D72.829 Elevated white blood cell count, unspecified; D75.1 Secondary polycythemia; Z88.5 Allergy status to narcotic agent
CPT/HCPCS: 36415; 38222; 77012; 85007; 85027; 85045; 85055; 85610; 85730; 99156

== ENCOUNTER → 2020-12-08 | Outpatient (CLI) | payer BC ==
[~2020-12-08] MED LIST changes: +CITA10TA7 PO; +DEXT10CA18 PO; +NICO-587 TD; +PROP60TA17 PO
--- NOTE | 2020-12-08 15:02 | Diagnostic Imaging Report ---
INDICATION: Routine screening. COMPARISON: No prior mammograms are available for comparison. This is a baseline study. TECHNIQUE: 2D and 3D bilateral screening mammography was performed with CAD. FINDINGS: The patient has bilateral breast implants. No definite evidence of extracapsular rupture is identified. Both breasts are heterogeneously dense, limiting the sensitivity of mammography. No definite mass or malignant appearing microcalcifications are seen. The axillae are unremarkable. IMPRESSION: No mammographic features suspicious for malignancy are identified. ACR BI-RADS Category 2: Benign findings. Result letter will be mailed to the patient. Note: At least 10% of breast cancer is not imaged by mammography. Dictated by: Dictated on workstation # [id number]
== END ==
LOC: RAD 08:30
PROVIDERS: ATTEND Internal Medicine Hematology & Oncology
DX: Z12.31 Encounter for screening mammogram for malignant neoplasm of breast (principal)
CPT/HCPCS: 77063; 77067

== ENCOUNTER 2020-12-22 08:46 | Outpatient (RCR) | payer BC ==
[2020-12-01 09:56] LABS: BASOPHILS # (AUTO) 0.1 10^3/uL (0.0-0.1); BASOPHILS % (AUTO) 1 % (0-10); EOSINOPHILS # (AUTO) 0.4 10^3/uL (0.0-0.3); EOSINOPHILS % (AUTO) 3 % (0-10); HEMATOCRIT 44 % (35-52); HEMOGLOBIN 14.9 g/dL (11.5-16.0); LYMPHOCYTES # (AUTO) 3.8 10^3/uL (1.0-4.0); LYMPHOCYTES % (AUTO) 33 % (12-44); MEAN CORPUSCULAR HEMOGLOBIN 32 pg (25-34); MEAN CORPUSCULAR HGB CONC 34 g/dL (32-36); MEAN CORPUSCULAR VOLUME 93 fL (80-99); MEAN PLATELET VOLUME 9.4 fL (9.0-12.2); MONOCYTES # (AUTO) 0.8 10^3/uL (0.0-1.0); MONOCYTES % (AUTO) 7 % (0-12); NEUTROPHILS # (AUTO) 6.5 10^3/uL (1.8-7.8); NEUTROPHILS % (AUTO) 56 % (42-75); PLATELET COUNT 513 10^3/uL (130-400); WHITE BLOOD COUNT 11.5 10^3/uL (4.3-11.0)
[2020-12-01 10:17] LABS: ERYTHROCYTE SEDIMENTATION RATE 6 MM/HR (0-20)
== END 2021-03-01 | disposition home or self-care (01) ==
LOC: ONC 08:46
PROVIDERS: ATTEND Internal Medicine Hematology & Oncology
DX: Z12.31 Encounter for screening mammogram for malignant neoplasm of breast (principal); D72.829 Elevated white blood cell count, unspecified; D75.1 Secondary polycythemia
CPT/HCPCS: 82728; 83540; 83550; 83615; 85025; 85652; G0463; 99213; 99214

== ENCOUNTER → 2021-03-06 | Outpatient (CLI) | payer BC | LOC: CARD 13:00 | PROVIDERS: ATTEND Internal Medicine Cardiovascular Disease | DX: I47.1 Supraventricular tachycardia (principal); I08.0 Rheumatic disorders of both mitral and aortic valves | CPT/HCPCS: 93306 ==

== ENCOUNTER → 2021-04-23 | Outpatient (CLI) | payer BC ==
[~2021-04-23] VITALS: Ht 182 cm; Wt 86.0 kg
[~2021-04-23] MED LIST changes: +CATHETER FLUSH 10 ML SYR IV PRN
[2021-04-23 12:00] VITALS: BP 94/67
--- NOTE | 2021-04-23 16:54 | NUCLEAR STRESS TEST ---
TREADMILL NUCLEAR STRESS TEST Date of procedure: 04/23/2021. Primary care provider: Enma Simpson APRN. Admitting physician: Ankit Forbes Jr., MD. INDICATION: Supraventricular tachycardia. BASELINE ELECTROCARDIOGRAM: Sinus rhythm with low voltage in the precordial leads. STRESS TEST PROCEDURE: The patient was exercised for a total of 7 minutes and 30 seconds of the standard Ayden protocol achieving a maximum MET level of 9.1. The resting heart rate was 77 bpm and the peak heart rate was 158 bpm, which represents 88% of the maximum predicted heart rate. The resting blood pressure was 88/59 mmHg and the peak blood pressure was 177/82 mmHg. This represents a normal heart rate and a normal blood pressure response to exercise. The test was stopped due to fatigue. There was no chest discomfort during the test. There were isolated premature ventricular complexes during the test. There were no significant stress induced electrocardiogram changes. The patient exhibited good exercise capacity for age. NUCLEAR PROCEDURE: The patient was administered 10.6 mCi of intravenous technetium 99m Tetrofosmin at rest for the rest images. The patient was subsequently administered 29.7 mCi of intravenous technetium 99 M Tetrofosmin at peak stress for the stress images. Following an appropriate wait after each injection, imaging was obtained. The images were subsequently processed and reformatted in the usual views. Gated imaging was obtained. The image quality was adequate but with gastrointestinal and breast attenuation artifact. CT attenuation correction was used as a adjunct to standard imaging. Both the co rrected and uncorrected images were reviewed for interpretation. NUCLEAR RESULTS: There was normal myocardial perfusion in all segments without evidence of infarction or ischemia. There was normal left ventricular chamber size with an end-diastolic volume of 57 mL and an end-systolic volume of 21 mL. There was no evidence of transient ischemic dilatation. The TID ratio was 1.04. There was normal wall motion in all segments with a calculated ejection fraction of 62%. IMPRESSION: 1. Normal heart rate and blood pressure response to exercise. 2. There was no exercise-induced chest discomfort. 3. There were isolated premature ventricular complexes during the test. 4. There were no exercise-induced electrocardiogram changes. 5. The patient exhibited good exercise capacity for age at 7 minutes and 30 seconds of the Ayden protocol. 6. There was normal myocardial perfusion in all segments without evidence of infarction or ischemia. 7. There was normal wall motion in all segments with a calculated ejection fraction of 62%. Certain portions of this document may have been dictated utilizing voice recognition technology. Inherent to this technology, typographical and grammatical errors may exist. As much as I am diligent to identify and correct these mistakes, some errors may remain in the document. ANKIT FOBRES JR, MD Apr 23, 2021 16:54
== END ==
LOC: CARD 11:30
PROVIDERS: ATTEND Internal Medicine Cardiovascular Disease
DX: I47.1 Supraventricular tachycardia (principal)
CPT/HCPCS: 78452; 93017; A9502

== ENCOUNTER 2021-07-27 13:55 | Outpatient (RCR) | payer BC ==
[~2021-07-27 13:55] MED LIST changes: -CATHETER FLUSH 10 ML SYR IV PRN; -CITA10TA7 PO; +CITA10TA9 PO
[2021-07-27 14:03] LABS: BASOPHILS # (AUTO) 0.1 10^3/uL (0.0-0.1); BASOPHILS % (AUTO) 1 % (0-10); EOSINOPHILS # (AUTO) 0.3 10^3/uL (0.0-0.3); EOSINOPHILS % (AUTO) 2 % (0-10); HEMATOCRIT 46 % (35-52); HEMOGLOBIN 15.5 g/dL (11.5-16.0); LYMPHOCYTES # (AUTO) 5.4 10^3/uL (1.0-4.0); LYMPHOCYTES % (AUTO) 38 % (12-44); MEAN CORPUSCULAR HEMOGLOBIN 32 pg (25-34); MEAN CORPUSCULAR HGB CONC 34 g/dL (32-36); MEAN CORPUSCULAR VOLUME 94 fL (80-99); MEAN PLATELET VOLUME 9.2 fL (9.0-12.2); MONOCYTES # (AUTO) 0.8 10^3/uL (0.0-1.0); MONOCYTES % (AUTO) 6 % (0-12); NEUTROPHILS # (AUTO) 7.7 10^3/uL (1.8-7.8); NEUTROPHILS % (AUTO) 53 % (42-75); PLATELET COUNT 519 10^3/uL (130-400); WHITE BLOOD COUNT 14.4 10^3/uL (4.3-11.0)
== END 2021-09-04 | disposition home or self-care (01) ==
LOC: ONC 13:55
PROVIDERS: ATTEND Internal Medicine Hematology & Oncology
DX: D47.3 Essential (hemorrhagic) thrombocythemia (principal); D72.829 Elevated white blood cell count, unspecified; I47.1 Supraventricular tachycardia; D75.1 Secondary polycythemia
CPT/HCPCS: 85025; G0463; 99213

== ENCOUNTER → 2022-01-25 | Outpatient (CLI) | payer BC ==
[2022-01-25 13:37] LABS: BASOPHILS # (AUTO) 0.1 10^3/uL (0.0-0.1); BASOPHILS % (AUTO) 1 % (0-10); EOSINOPHILS # (AUTO) 0.3 10^3/uL (0.0-0.3); EOSINOPHILS % (AUTO) 2 % (0-10); HEMATOCRIT 45 % (35-52); HEMOGLOBIN 15.1 g/dL (11.5-16.0); LYMPHOCYTES # (AUTO) 4.9 10^3/uL (1.0-4.0); LYMPHOCYTES % (AUTO) 33 % (12-44); MEAN CORPUSCULAR HEMOGLOBIN 31 pg (25-34); MEAN CORPUSCULAR HGB CONC 34 g/dL (32-36); MEAN CORPUSCULAR VOLUME 93 fL (80-99); MEAN PLATELET VOLUME 9.4 fL (9.0-12.2); MONOCYTES # (AUTO) 0.9 10^3/uL (0.0-1.0); MONOCYTES % (AUTO) 6 % (0-12); NEUTROPHILS # (AUTO) 8.8 10^3/uL (1.8-7.8); NEUTROPHILS % (AUTO) 58 % (42-75); PLATELET COUNT 466 10^3/uL (130-400)
[2022-01-25 14:06] LABS: ALBUMIN 4.1 GM/DL (3.2-4.5); BILIRUBIN,TOTAL 0.6 MG/DL (0.1-1.0); CALCIUM 9.4 MG/DL (8.5-10.1); CREATININE SERUM 0.79 MG/DL (0.60-1.30); POTASSIUM 4.1 MMOL/L (3.6-5.0); TOTAL PROTEIN 6.8 GM/DL (6.4-8.2)
== END ==
LOC: ONC 13:33
PROVIDERS: ATTEND Internal Medicine Hematology & Oncology
DX: Z12.31 Encounter for screening mammogram for malignant neoplasm of breast (principal); D69.6 Thrombocytopenia, unspecified; D75.839 Thrombocytosis, unspecified; D72.829 Elevated white blood cell count, unspecified; D75.1 Secondary polycythemia; I47.9 Paroxysmal tachycardia, unspecified
CPT/HCPCS: 80053; 85025; G0463; 36415; 99213

== ENCOUNTER → 2022-05-07 | Outpatient (CLI) | payer BC | LOC: CARD 15:00 | PROVIDERS: ATTEND Internal Medicine Cardiovascular Disease | DX: I35.1 Nonrheumatic aortic (valve) insufficiency (principal); I51.7 Cardiomegaly | CPT/HCPCS: 93306 ==

== ENCOUNTER → 2022-06-07 | Outpatient (CLI) | payer BC ==
--- NOTE | 2022-06-07 15:53 | Diagnostic Imaging Report ---
INDICATION: Routine screening. COMPARISON: 12/08/2020. FINDINGS: Bilateral breast implants are again noted. The implant contours appear stable. Both breasts remain heterogeneously dense, limiting the sensitivity of mammography. The overall parenchymal pattern is stable. No new mass or malignant appearing microcalcifications are seen. The axillae are unremarkable. IMPRESSION: No mammographic features suspicious for malignancy are identified. ACR BI-RADS Category 2: Benign findings. Result letter will be mailed to the patient. Note: At least 10% of breast cancer is not imaged by mammography. Dictated by: Dictated on workstation # [id number]
== END ==
LOC: RAD 09:18
PROVIDERS: ATTEND Nurse Practitioner Family
DX: Z12.31 Encounter for screening mammogram for malignant neoplasm of breast (principal)
CPT/HCPCS: 77063; 77067

== ENCOUNTER → 2023-01-24 | Outpatient (CLI) | payer BC, OTHER ==
[~2023-01-24] MED LIST changes: +ALBU8.5H6 IH; -RT-ALBUINH IH
[2023-01-24 14:07] LABS: BASOPHILS # (AUTO) 0.1 10^3/uL (0.0-0.1); BASOPHILS % (AUTO) 1 % (0-10); EOSINOPHILS # (AUTO) 0.3 10^3/uL (0.0-0.3); EOSINOPHILS % (AUTO) 2 % (0-10); HEMATOCRIT 42 % (35-52); HEMOGLOBIN 14.7 g/dL (11.5-16.0); LYMPHOCYTES # (AUTO) 4.2 10^3/uL (1.0-4.0); LYMPHOCYTES % (AUTO) 33 % (12-44); MEAN CORPUSCULAR HEMOGLOBIN 32 pg (25-34); MEAN CORPUSCULAR HGB CONC 35 g/dL (32-36); MEAN CORPUSCULAR VOLUME 91 fL (80-99); MONOCYTES # (AUTO) 0.5 10^3/uL (0.0-1.0); MONOCYTES % (AUTO) 4 % (0-12); NEUTROPHILS # (AUTO) 7.4 10^3/uL (1.8-7.8); NEUTROPHILS % (AUTO) 59 % (42-75); PLATELET COUNT 491 10^3/uL (130-400); WHITE BLOOD COUNT 12.5 10^3/uL (4.3-11.0)
[2023-01-24 14:22] LABS: ALBUMIN 3.8 GM/DL (3.2-4.5); BILIRUBIN,TOTAL 0.4 MG/DL (0.1-1.0); CALCIUM 8.8 MG/DL (8.5-10.1); CREATININE SERUM 0.78 MG/DL (0.60-1.30); POTASSIUM 3.7 MMOL/L (3.6-5.0); TOTAL PROTEIN 6.6 GM/DL (6.4-8.2)
== END ==
LOC: ONC 13:47
PROVIDERS: ATTEND Internal Medicine Hematology & Oncology
DX: D72.829 Elevated white blood cell count, unspecified (principal); D75.1 Secondary polycythemia; Z12.31 Encounter for screening mammogram for malignant neoplasm of breast; D75.839 Thrombocytosis, unspecified; D69.3 Immune thrombocytopenic purpura; I47.9 Paroxysmal tachycardia, unspecified
CPT/HCPCS: 36415; 80053; 85025

== ENCOUNTER → 2023-07-21 | Outpatient (CLI) | payer OTHER ==
[2023-07-21 13:18] LABS: BASOPHILS # (AUTO) 0.1 10^3/uL (0.0-0.1); BASOPHILS % (AUTO) 1 % (0-10); EOSINOPHILS # (AUTO) 0.3 10^3/uL (0.0-0.3); EOSINOPHILS % (AUTO) 2 % (0-10); HEMATOCRIT 42 % (35-52); HEMOGLOBIN 13.7 g/dL (11.5-16.0); LYMPHOCYTES # (AUTO) 4.7 10^3/uL (1.0-4.0); LYMPHOCYTES % (AUTO) 40 % (12-44); MEAN CORPUSCULAR HEMOGLOBIN 31 pg (25-34); MEAN CORPUSCULAR HGB CONC 33 g/dL (32-36); MEAN CORPUSCULAR VOLUME 94 fL (80-99); MONOCYTES # (AUTO) 0.7 10^3/uL (0.0-1.0); MONOCYTES % (AUTO) 6 % (0-12); NEUTROPHILS # (AUTO) 6.1 10^3/uL (1.8-7.8); NEUTROPHILS % (AUTO) 51 % (42-75); PLATELET COUNT 585 10^3/uL (130-400); WHITE BLOOD COUNT 11.9 10^3/uL (4.3-11.0)
[2023-07-21 13:38] LABS: BILIRUBIN,TOTAL 0.3 MG/DL (0.1-1.0); CREATININE SERUM 0.8 MG/DL (0.60-1.30); POTASSIUM 4.2 MMOL/L (3.6-5.0)
== END ==
LOC: ONC 12:59
PROVIDERS: ATTEND Internal Medicine Hematology & Oncology
DX: D72.829 Elevated white blood cell count, unspecified (principal); D75.1 Secondary polycythemia; D69.6 Thrombocytopenia, unspecified; R00.0 Tachycardia, unspecified
CPT/HCPCS: 80053; 85025; G0463; 99214

== ENCOUNTER → 2023-07-22 | Outpatient (CLI) | payer OTHER ==
--- NOTE | 2023-07-22 11:21 | Diagnostic Imaging Report ---
Indication: Routine screening. Comparison is made with prior mammogram from 06/07/2022 and 12/08/2020. CAD. The current study was also evaluated with a Computer Aided Detection (CAD) system. Bilateral breast implants again noted. Overall implant contours appear to be stable. There is no definite evidence of extracapsular rupture. Both breasts are heterogeneously dense, limiting the sensitivity of mammography. The parenchymal pattern is stable. No mass or malignant-appearing microcalcifications are identified. Axillae are unremarkable. IMPRESSION: BI-RADS Category 2 No mammographic features suspicious for malignancy are identified. ACR BI-RADS Category 2: Benign findings. Result letter will be mailed to the patient. Note: At least 10% of breast cancer is not imaged by mammography. Dictated by: Dictated on workstation # [id number]
== END ==
LOC: RAD 07:38
PROVIDERS: ATTEND Nurse Practitioner Family
DX: Z12.31 Encounter for screening mammogram for malignant neoplasm of breast (principal)
CPT/HCPCS: 77063; 77067

== ENCOUNTER → 2023-08-08 | Outpatient (CLI) | payer OTHER ==
[~2023-08-08] MED LIST changes: +HOLD METFORMIN - RECEIVED CONTRAST 20 ML VIAL IV SCH; +IOHEXOL 350 MG/ML 100 ML (OMNIPAQUE 350) VIAL IV ONE; +NS 100 ML (IVPB) BAG IV ONE
--- NOTE | 2023-08-08 12:40 | Diagnostic Imaging Report ---
PROCEDURE: CT abdomen and pelvis with contrast. TECHNIQUE: Multiple contiguous axial images were obtained through the abdomen and pelvis after administration of intravenous contrast. Auto Exposure Controls were utilized during the CT exam to meet ALARA standards for radiation dose reduction. All CT scans use one or more of the following dose optimizing techniques: automated exposure control, MA and/or KvP adjustment based on patient size and exam type or iterative reconstruction. INDICATION: Lower abdominal and pelvic pain in patient with prior cervical carcinoma. FINDINGS: There is low-density throughout the liver indicating steatosis. No gallbladder, pancreatic, adrenal gland, or splenic abnormality is identified. There are surgical clips in the hepatogastric ligament. A probable 1 cm cyst involves the right renal cortex. Otherwise, the kidneys are unremarkable. There is no evidence of free fluid within the abdomen or pelvis. The appendix has a normal appearance. No pathologically enlarged adenopathy is seen. The unopacified bladder is unremarkable. There is mild herniation of omental fat through a small umbilical defect. IMPRESSION: Hepatic steatosis without evidence of acute abnormality in the abdomen or pelvis. Dictated by: Dictated on workstation # [id number]
== END ==
LOC: RAD 11:55
PROVIDERS: ATTEND Internal Medicine Hematology & Oncology
DX: K76.0 Fatty (change of) liver, not elsewhere classified (principal)
CPT/HCPCS: 74177